=== PATIENT | male | born 2000 | race Caucasian/White ===

== ENCOUNTER 2020-10-21 23:17 | Emergency (ER) | payer OTHER ==
[~2020-10-21] VITALS: Ht 175.3 cm; Wt 72.0 kg
[2020-10-21 23:30] VITALS: BP 145/78
--- NOTE | 2020-10-21 23:47 | PHYS DOC ---
Past Medical History Past Medical History: No Pertinent History Past Surgical History: Other Additional Past Surgical Histo: cleft palet repair x 11 when a kid Smoking Status: Never Smoker Alcohol Use: None Drug Use: None General Adult EDM: Chief Complaint: ANKLE PROBLEM HPI: HPI: Patient is a 20 year old male who presents s/p right ankle injury three days ago with complaints of increased bruising and swelling. States he injured the foot while playing soccer and believes he rolled over it. He was evaluated at [facility] ED after the injury and states imaging was negative for any fracture. Denies any pain currently but states it is present with weight bearing. He is ambulating without difficulty. No numbness/tingling/weakness. Review of Systems: Review of Systems: Constitutional: Denies fever or chills Eyes: Denies redness or eye pain HENT: Denies nasal congestion or sore throat Respiratory: Denies cough or shortness of breath Cardiovascular: Denies chest pain or palpitations GI: Denies abdominal pain, nausea, or vomiting : Denies dysuria or hematuria Musculoskeletal: Reports swelling and bruising of left foot and ankle. Denies b ack pain Integument: Denies rash or skin lesions Neurologic: Denies headache, focal weakness or sensory changes Complete systems were reviewed and found to be within normal limits, except as documented in this note. Heart Score: C/O Chest Pain: N/A Allergies: Allergies: Allergies Coded Allergies Type Severity Reaction Last Updated Verified No Known Drug Allergies 10/21/20 No Physical Exam: PE: Constitutional: Well developed, well nourished, no acute distress, non-toxic appearance HENT: Normocephalic, atraumatic Eyes: Conjunctiva normal, no discharge Neck: Normal range of motion, no tenderness, supple Lungs & Thorax: No respiratory distress, equal chest rise and fall Abdomen: Soft, no tenderness Skin: Warm, dry, no erythema, no rash Back: No tenderness, no CVA tenderness Extremities: There is a moderate amount of swelling and bruising noted over the lateral left ankle and the dorsum of the left foot. No tenderness appreciated, full active ROM. 2+ distal pulses bilaterally. Neurologic: Alert and oriented X 3, normal motor function, normal sensory function, no focal deficits noted Psychologic: Affect normal, judgment normal Current Patient Data: Vital Signs: Vital Signs Date Time Temp Pulse Resp B/P (MAP) Pulse Ox O2 Delivery O2 Flow Rate FiO2 10/21/20 23:30 98.3 70 18 145/78 Room Air 98.3 EKG: EKG: [] Radiology/Procedures: Radiology/Procedures: [] Course & Med Decision Making: Course & Med Decision Making 20 year old male presents with a 3 day history of left foot and ankle swelling s/p injury. Previous ED records and imaging reviewed and further evaluation in the ED unlikely to be positive for any acute findings. The extremity was wrapped in JESSICA bandaging. Patient given RICE instructions and referral for orthopedics. Patient stable for discharge with outpatient follow-up with PCP and orthopedics. Discussed findings and plan with patient, who acknowledges understanding and agreement. Primary Data Disclaimer: Primary Data Disclaimer: This electronic medical record was generated, in whole or in part, using a voice recognition dictation system. Departure Departure Impression: Primary Impression: Right ankle sprain Qualified Codes: S93.401D - Sprain of unspecified ligament of right ankle, subsequent encounter Disposition: HOME / SELF CARE / HOMELESS Condition: STABLE Referrals: NO PCP (PCP) CLARKE MORIN Jr. DO Patient Instructions: Ankle Sprain, [id number], Elastic Bandage and RICE Additional Instructions: ICE area of discomfort 20 min on then leave off next 20 mins. Repeat several times daily as needed for next few days. Use over the counter Tylenol and/or Ibuprofen for pain or discomfort. ROSA SAM DO Oct 21, 2020 23:47
== END 2020-10-21 23:59 | disposition home or self-care (01) ==
LOC: ER 23:17
DX: S93.401D Sprain of unspecified ligament of right ankle, subsequent encounter (principal); X50.9XXA Other and unspecified overexertion or strenuous movements or postures, initial encounter; Y93.66 Activity, soccer; Y92.89 Other specified places as the place of occurrence of the external cause; Y99.8 Other external cause status
CPT/HCPCS: 99282